=== PATIENT | female | born 1955 | race Asian ===

== ENCOUNTER → 2020-09-20 | Outpatient (CLI) | payer MEDICARE, OTHER | END | disposition home or self-care (01) | LOC: RADMN 10:38 | PROVIDERS: ATTEND Podiatrist Foot & Ankle Surgery | DX: M20.11 Hallux valgus (acquired), right foot (principal); M19.071 Primary osteoarthritis, right ankle and foot; D16.31 Benign neoplasm of short bones of right lower limb | CPT/HCPCS: 73630-TC ==

== ENCOUNTER 2023-02-26 18:00 | Emergency (ER) | payer MEDICARE, OTHER ==
[~2023-02-26] VITALS: Ht 152.4 cm; Wt 53.5 kg
[2023-02-26] MEDS ORDERED: ATOR20TA65 PO (18:24)
[2023-02-26] MEDS ORDERED: NIFE-78 PO (18:24)
[2023-02-26 20:40] VITALS: BP 163/76; PULSE 88; RESP 14; TEMP 98.2
[2023-02-26] MEDS ORDERED: ACETAMINOPHEN 500 MG TABLET PO ONE (20:45)
== END 2023-02-26 23:28 | disposition home or self-care (01) ==
LOC: EMS 18:01
DX: S80.12XA Contusion of left lower leg, initial encounter (principal); S80.812A Abrasion, left lower leg, initial encounter; E78.00 Pure hypercholesterolemia, unspecified; I10 Essential (primary) hypertension; Z90.49 Acquired absence of other specified parts of digestive tract; Z98.890 Other specified postprocedural states; X58.XXXA Exposure to other specified factors, initial encounter; Y93.89 Activity, other specified; Y92.89 Other specified places as the place of occurrence of the external cause; Y99.8 Other external cause status
CPT/HCPCS: 99283